=== PATIENT | female | born 1970 | race Caucasian/White ===

== ENCOUNTER 2017-02-17 05:02 | Inpatient (IN) | payer OTHER ==
[2017-02-15 13:49] VITALS: BMI 47.5
[~2017-02-17 05:02] MED LIST: BUPIVACAINE HCL/PF 0.5% (5MG/ML) 10 ML VIAL IJ ONE
[2017-02-17] MEDS ORDERED: PROPOFOL 20 ML ONE ×2 (13:14→15:41)
[2017-02-17] MEDS ORDERED: ROCURONIUM BROMIDE 50 MG/5 ML VIAL ONE (13:15)
[2017-02-17] MEDS ORDERED: DEXAMETHASONE SOD PHOSPHATE 4 MG/1 ML VIAL ONE (13:15)
[2017-02-17] MEDS ORDERED: LIDOCAINE HCL/PF 2% SDV 5ML VIAL ONE (13:15)
[2017-02-17] MEDS ORDERED: MIDAZOLAM HCL 2 MG/2 ML SINGLE DOSE VIAL ONE (13:15)
[2017-02-17] MEDS ORDERED: BUPIVACAINE HCL/PF 0.5% (5MG/ML) 10 ML VIAL ONE (13:33)
[2017-02-17] MEDS ORDERED: ceFAZolin SODIUM 1 GM VIAL ONE (14:19)
[2017-02-17] MEDS ORDERED: ceFAZolin SODIUM 1 GM VIAL IVPB ONE (14:20)
[2017-02-17] MEDS ORDERED: BUPIVACAINE HCL/PF 0.5% (5MG/ML) 10 ML VIAL IJ ONE (15:58)
[2017-02-17] MEDS ORDERED: NEOSTIGMINE METHYLSULFATE 0.5 MG/ML - 10 ML MDV ONE (16:13)
[2017-02-17] MEDS ORDERED: GLYCOPYRROLATE 0.2 MG/1 ML VIAL ONE (16:15)
--- NOTE | 2017-02-17 16:16 | OP ---
Operative Note - Note: Operative Date: 02/17/17 Pre-Operative Diagnosis: Morbid Obesity Operation: Laparoscopic Vertical Sleeve Gastrectomy. Repair of Para-esophageal Hernia. Laparoscopic Lysis of Adhesions. Diagnostic Laparoscopy Findings: Very Large Para-esophageal Hernia with large portion of stomach prolapsed above the hiatus. A Large amount of adhseions lysed to free the stomach from the mediastinum. Greater curvature Sleeve Gastrectomy performed with #[address] Implants: no Post-Operative Diagnosis: Other (Para-esophageal Hernis; Abdominal adhesions) Surgeon: Jacobo Serna Tubular Stock Glass Bulb Machine Former: Femi Pereyra Anesthesia: General Specimens Removed: Greater Curve of Stomach Estimated Blood Loss (mls): 30
[2017-02-17] MEDS ORDERED: ONDANSETRON 4 MG/2 ML VIAL IVPB PRN (16:22)
[2017-02-17] MEDS ORDERED: PROMETHAZINE HCL 25 MG/1 ML VIAL IVPUSH PRN (16:25)
[2017-02-17] MEDS ORDERED: HYDROmorphone HCL CARPU-JECT 1 MG/1 ML DISP.SYRIN IVPUSH PRN (16:25)
[2017-02-17] MEDS ORDERED: PROMETHAZINE HCL 25 MG/1 ML VIAL ONE (16:28)
[2017-02-17] MEDS ORDERED: METOCLOPRAMIDE HCL INJECTION 10 MG/2 ML VIAL ONE (16:53)
[2017-02-17] MEDS ORDERED: HYDROmorphone HCL CARPU-JECT 2 MG/1 ML DISP.SYRIN ONE (16:54)
[2017-02-17] MEDS: METOCLOPRAMIDE HCL INJECTION 10 MG/2 ML VIAL IVPB SCH ×3 (17:00→22:00)
[2017-02-17 17:07] LABS: MCH 30.4 pg (25.7-33.7); MEAN CELL VOLUME 92.2 fl (80-96); PLATELET COUNT 291 K/MM3 (134-434); RDW 14.7 % (11.6-15.6); WHITE BLOOD COUNT 12.5 K/mm3 (4.0-10.0)
[2017-02-17 17:35] LABS: ALBUMIN 3.6 g/dl (3.4-5.0); ALK PHOS 61 U/L (45-117); ANION GAP 7 (8-16); BILIRUBIN,TOTAL 0.6 mg/dL (0.2-1.0); CALCIUM 8.6 mg/dL (8.5-10.1); CO2 26 mmol/L (21-32); CREATININE 0.7 mg/dL (0.55-1.02); GLUCOSE,RANDOM 117 mg/dL (74-106); SGOT/AST 16 U/L (15-37); SGPT/ALT 23 U/L (12-78); TOT PROT 6.3 g/dl (6.4-8.2)
[2017-02-17] MEDS: SODIUM CHLORIDE 1,000 ML IV SCH (18:00)
[2017-02-17] MEDS: ENOXAPARIN NA (PORCINE) 40 MG/0.4 ML DISP.SYRIN SQ SCH (21:05)
[2017-02-17] MEDS: FAMOTIDINE 20 MG/50 ML IVPB 50 ML IVPB SCH (21:05)
[2017-02-17] MEDS: HYDROmorphone HCL CARPU-JECT 1 MG/1 ML DISP.SYRIN IVPB PRN (21:06)
[2017-02-18] MEDS: METOCLOPRAMIDE HCL INJECTION 10 MG/2 ML VIAL IVPB SCH ×3 (02:46→14:49)
[2017-02-18] MEDS: HYDROmorphone HCL CARPU-JECT 1 MG/1 ML DISP.SYRIN IVPB PRN ×2 (05:30→10:52)
--- NOTE | 2017-02-18 07:38 | OP ---
DATE OF OPERATION: 02/17/2017 PREOPERATIVE DIAGNOSIS: Morbid obesity. POSTOPERATIVE DIAGNOSES: 1. Morbid obesity. 2. Paraesophageal hernia. 3. Abdominal adhesions. PROCEDURE PERFORMED: 1. Laparoscopic vertical sleeve gastrectomy. 2. Laparoscopic repair of paraesophageal hernia. 3. Laparoscopic lysis of adhesions. 4. Diagnostic laparoscopy. OPERATING SURGEON: Jacobo Serna MD CONTACT CENTER SPECIALIST: Femi Pereyra MD ANESTHESIA: General. OPERATIVE PROCEDURE: The patient was brought into the operating room, placed on the OR table in the supine position. All precautions were taken initially, including padding for the back and the feet and Venodyne boots were placed on both lower extremities. At that point, the abdomen was prepped and draped in the usual manner. A Veress needle was placed in the left upper quadrant and a pneumoperitoneum was established. A No. 12 bladeless trocar was placed in the left upper quadrant. Through that trocar, a laparoscopic camera was placed. Under direct vision, a No. 15 bladeless trocar was placed in the midline in a supraumbilical position, a No. 5 bladeless trocar in the right upper quadrant, and a No. 5 bladeless trocar below the left costal margin. A Lisa liver retractor was then placed in the epigastrium to retract the left lobe of the liver. The patient was then placed in a 20-degree reverse Trendelenburg position. At this point, attention was directed to the upper portion of the stomach where there was noted to be a large amount of adhesions between the omentum and the undersurface of the liver and also off of the hiatus area. These adhesions were lysed with the LigaSure device. The adhesions were mostly in the left upper quadrant by the left crural muscle. After the adhesions were lysed and the left crural muscle was dissected and was exposed, there was noted to be a large paraesophageal hernia. The evidence for this was that a large portion of the stomach was within the hernia. A large amount of the hernia was above the hiatus in the mediastinum. At this point, it was felt that for the sleeve to be successful the stomach would have to be returned into the abdominal position. At this point, the operating surgeon used his left hand to retract the stomach inferiorly and the digital assistant surgeon then attempted to expose the hiatus of the diaphragm. Once this was done, the scar tissue that was holding the stomach in the mediastinum was dissected off with the LigaSure device. Once the left jake was completely free, the tissue between the left and right crural muscles was freed. Attention was now directed to the right crural muscle. Here, the scar tissue was ferocious, some of it involving the liver. The liver was retracted out of the way by the liver retractor, had to be changed multiple times. Delicate care was taken to dissect the scar tissue off the right crural muscle, making sure that the stomach was far away so that it would not be involved in the dissection. Once the right crural muscle was completely free, attention was now directed to closure of the hiatal hernia. After Anesthesia placed a No. 36 bougie down as a guide, a series of sutures were performed. These were interrupted sutures performed with the Endo Stitch. They started superiorly and went inferiorly until the final suture was tied and it had closed the hernia completely, but it was not too tight that it would not cause postoperative dysphagia. At this point, attention was directed to performing of the sleeve. Approximately 4 cm proximal to the pylorus, the stomach was lifted up by the operating surgeon to the anterior abdominal wall as the digital assistant surgeon retracted the gastrocolic ligament inferiorly. The LigaSure device was now used to make an opening into the lesser sac. This continued along the greater curve until all the gastrocolic ligament and short gastric vessels were dissected free. At this point, it was begun that the stapling would be performed. The first 2 nely were black-load nely 6 cm in length along the No. 36 bougie on the lesser curve. This was followed by 2 purple-load nely that also were hugging the bougie until the final staple was applied in the left upper quadrant and greater curve was now completely detached from the lesser curve. At this juncture, saline was placed around the staple line. Anesthesia inserted air into the bougie. The entire stomach distended down to the pylorus. No obstruction was noted and no leaks were noted. At this point, the bougie was removed by Anesthesia and the resected greater curvature was removed through the No. 15 trocar site and sent off the field as a specimen to Pathology. Under direct vision, the No. 15 and No. 12 trocars were closed with Endo Close device to prevent internal hernia and to prevent bleeding. Under direct vision, all trocars were removed and pneumoperitoneum was released. All trocar sites then received 0.25% Marcaine, were closed with 4-0 Biosyn in subcuticular fashion. Dressings were applied. Patient awoke from anesthesia and was transferred out of the operating room to the recovery room in stable condition. Expected blood loss was 30 mL. Christian [id number]
[2017-02-18 07:50] LABS: MCH 30.2 pg (25.7-33.7); MCHC 32.5 g/dl (32.0-36.0); MEAN CELL VOLUME 92.8 fl (80-96); MEAN PLT VOLUME 8.4 fl (7.5-11.1); PLATELET COUNT 273 K/MM3 (134-434); RDW 14.5 % (11.6-15.6); WHITE BLOOD COUNT 13.5 K/mm3 (4.0-10.0)
[2017-02-18 08:26] LABS: ALBUMIN 3.1 g/dl (3.4-5.0); ANION GAP 11 (8-16); CALCIUM 7.7 mg/dL (8.5-10.1); CO2 23 mmol/L (21-32); CREATININE 0.5 mg/dL (0.55-1.02); GLUCOSE,RANDOM 88 mg/dL (74-106); SGOT/AST 14 U/L (15-37); SGPT/ALT 21 U/L (12-78)
[2017-02-18 08:28] LABS: ALK PHOS 55 U/L (45-117); BILIRUBIN,TOTAL 0.8 mg/dL (0.2-1.0); TOT PROT 5.9 g/dl (6.4-8.2)
[2017-02-18] MEDS: ENOXAPARIN NA (PORCINE) 40 MG/0.4 ML DISP.SYRIN SQ SCH (09:07)
[2017-02-18] MEDS: FAMOTIDINE 20 MG/50 ML IVPB 50 ML IVPB SCH (09:14)
--- NOTE | 2017-02-18 11:16 | PN ---
Progress Note (short form) - Note Progress Note: Posy op day#1.S/p Laproscopic gastric sleeve placement under Ga uneventful.Patient stable.No any anesthesia related problem.Patient DC from the anesthesia care.
[2017-02-18] MEDS: SODIUM CHLORIDE 1,000 ML IV SCH (13:48)
[2017-02-18 14:40] VITALS: BP 114/62; PULSE 76; TEMP 98.2
[2017-02-18] MEDS ORDERED: ACETAMINOPHEN 325 MG TABLET (FP) PO PRN (16:44)
[2017-02-18] MEDS ORDERED: oxyCODONE HCL 5 MG TABLET PO PRN (16:44)
--- NOTE | 2017-02-18 16:44 | PN ---
Progress Note (short form) - Note Progress Note: POD#1 Afebrile, VSS P-68-76 BP-114/62 Pt doing well, ambulating Minimal pain/discomfort Debra PO ice chips UGI- no leak, no obstruction WBC-13.59 (slight increase) H/H-12/37 P- PO clear liquids-2 oz po tid D/C pt home F/U with Dr Serna in 6 days
--- NOTE | 2017-02-21 16:38 | PATH ---
Surgical Pathology Report Patient Name: WILMA LOPEZ [facility]. Rec. #: [id number] /Age/Gender: 1970 (Age: 46) / F Account: [id number] Location: 4 W TELEMETRY U Taken: 02/17/2017 Received: 02/18/2017 Reported: 02/21/2017 Physicians: Jacobo Serna M.D. Specimen(s) Received GREATER CURVARTURE OF THE STOMACH Clinical History Morbid obesity Final Diagnosis STOMACH, GREATER CURVATURE: PORTION OF STOMACH WITH MILD TO MODERATE CHRONIC GASTRITIS. IMMUNOSTAIN FOR H. PYLORI IS NEGATIVE FOR ORGANISMS. Electronically Signed Jaycob Paredes M.D. Gross Description Received in formalin, labeled "greater curvature of stomach" is a 20 gram, 9.5 x 2.3 x 1.8 cm portion of stomach with a stapled margin of resection. The serosa is galloway-lee with minimal attached fat. The mucosa is galloway-pink with focally flattened folds No mucosal masses are identified. Book Or Script Editor sections are submitted in one cassette. /02/18/2017 [facility]02/18/2017
--- NOTE | 2017-02-24 14:57 | EKG ---
Test Reason : Blood Pressure : / mmHG Vent. Rate : 058 BPM Atrial Rate : 058 BPM P-R Int : 126 ms QRS Dur : 078 ms QT Int : 444 ms P-R-T Axes : -09 013 034 degrees QTc Int : 435 ms SINUS BRADYCARDIA LOW VOLTAGE QRS BORDERLINE ECG NO PREVIOUS ECGS AVAILABLE Confirmed by WILFREDO ARIZA, TERRANCE ([id number]) on 02/24/2017 2:56:55 PM Referred By: Jacobo Serna Confirmed By:TERRANCE VILLALOBOS MD
== END 2017-02-18 18:00 | disposition home or self-care (01) | DRG 621 ==
LOC: JSAMEDAYSX 05:02 → EDSTATUS 14:00 → J4W 18:16
PROVIDERS: ADMIT Surgery; ATTEND Surgery
PROC: 0BQS4ZZ (ICD-10-PCS; 2017-02-17)
PROC: 0DNW4ZZ Release Peritoneum, Percutaneous Endoscopic Approach (ICD-10-PCS; 2017-02-17)
PROC: 0WJP4ZZ Inspection of Gastrointestinal Tract, Percutaneous Endoscopic Approach (ICD-10-PCS; 2017-02-17)
PROC: 0DB64Z3 Excision of Stomach, Percutaneous Endoscopic Approach, Vertical (ICD-10-PCS; principal; 2017-02-17 11:00)
DX: E66.01 Morbid (severe) obesity due to excess calories (principal); Z68.42 Body mass index [BMI] 45.0-49.9, adult; Z71.3 Dietary counseling and surveillance; K44.9 Diaphragmatic hernia without obstruction or gangrene; K66.0 Peritoneal adhesions (postprocedural) (postinfection); Z87.891 Personal history of nicotine dependence
CPT/HCPCS: 36415; 74241-TC; 80053; 84703; 85027; 88305-TC; 93005; 93010; 94010; 94760